=== PATIENT | female | born 1965 ===

== ENCOUNTER 2017-05-18 09:49 | Emergency (ER) | payer OTHER ==
[2017-05-18] MEDS ORDERED: Aspirin 325 mg EC Tablets PO STA (10:45)
[2017-05-18] MEDS ORDERED: Sodium Chloride 0.9% 1,000 ML IV ONE (10:45)
[2017-05-18] MEDS ORDERED: Sodium Chloride 0.9% 1,000 ML ONE (11:00)
--- NOTE | 2017-05-18 11:02 | RAD ---
PROCEDURE: CHEST RADIOGRAPH, 1 VIEW HISTORY: chest pain COMPARISON: None available. FINDINGS: LUNGS: Clear. PLEURA: No pneumothorax or pleural fluid seen. CARDIOVASCULAR: Normal. OSSEOUS STRUCTURES: No significant abnormalities. VISUALIZED UPPER ABDOMEN: Normal. OTHER FINDINGS: None. IMPRESSION: No active disease.
--- NOTE | 2017-05-18 11:29 | C.PDOC ---
History Of Present Illness <Ofelia Robison - Last Filed: 05/18/17 15:27> <Ashley Reddy - Last Filed: 05/18/17 16:53> 51 year old female, whose past medical history includes left-sided breast cancer , presents to the ED with her niece for evaluation of left breast pain that radiates down her left arm which began 1 week ago. Patient underwent partial mastectomy in 2007 and most recent chemotherapy session in August 2008 while in the [place]. Patient was referred by her doctor in [facility] to have a PET scan done, but she has not followed up yet. Patient denies fever, chills, chest pain, shortness of breath, nausea, vomiting, abdominal pain, extremity numbness/weakness, past medical history of HTN or other cardiac-related issues. (Ofelia Robison) History Per: Patient, Family (niece ) History/Exam Limitations: no limitations Onset/Duration Of Symptoms: Days (1 week ), Intermittent Episodes Current Symptoms Are (Timing): Still Present Additional History Per: Patient <Ofelia Robison - Last Filed: 05/18/17 15:27> <Ashley Reddy - Last Filed: 05/18/17 16:53> Time Seen by Provider: 05/18/17 10:33 Chief Complaint (Nursing): Breast Problem Past Medical History Reviewed: Historical Data, Nursing Documentation, Vital Signs - Medical History PMH: No Chronic Diseases Family History: States: Unknown Family Hx - Social History Hx Alcohol Use: No Hx Substance Use: No - Immunization History Hx Tetanus Toxoid Vaccination: No Hx Influenza Vaccination: No Hx Pneumococcal Vaccination: No <Ofelia Robison - Last Filed: 05/18/17 15:27> Vital Signs: Last Vital Signs Temp 97.5 F L 05/18/17 13:32 Pulse 94 H 05/18/17 13:32 Resp 20 05/18/17 13:32 BP 145/91 H 05/18/17 13:32 Pulse Ox 99 05/18/17 15:34 Review Of Systems Constitutional: Negative for: Fever, Chills Cardiovascular: Negative for: Chest Pain Respiratory: Negative for: Shortness of Breath Gastrointestinal: Negative for: Nausea, Vomiting, Abdominal Pain Musculoskeletal: Positive for: Arm Pain (left), Other (left breast pain ) Neurological: Negative for: Weakness, Numbness <Ofelia Robison - Last Filed: 05/18/17 15:27> Physical Exam - Physical Exam Appears: Non-toxic, No Acute Distress Skin: Normal Color, Warm, Dry Head: Atraumatic, Normacephalic Eye(s): bilateral: Normal Inspection, EOMI Nose: Normal Oral Mucosa: Moist Neck: Supple Chest: Symmetrical, No Deformity, Tenderness (at 2 oclock to left breast on palpation where healed incision is, no erythema, no increased warmth), No Other (right breast tenderness ) Cardiovascular: Rhythm Regular Respiratory: Normal Breath Sounds, No Rales, No Rhonchi, No Wheezing Gastrointestinal/Abdominal: Soft, No Tenderness, No Guarding, No Rebound Extremity: Normal ROM, Capillary Refill (less than 2 seconds ) Neurological/Psych: Oriented x3, Normal Speech, Normal Cognition Gait: Steady <Ofelia Robison - Last Filed: 05/18/17 15:27> ED Course And Treatment - Laboratory Results Result Diagrams: 05/18/17 11:30 05/18/17 11:30 ECG: Interpreted By Me, Viewed By Me ECG Rhythm: Sinus Rhythm Rate From EC O2 Sat by Pulse Oximetry: 99 (on RA) Pulse Ox Interpretation: Normal - Other Rad CXR X-Ray: Interpreted by Me, Viewed By Me, Read By Radiologist Interpretation: PROCEDURE: CHEST RADIOGRAPH, 1 VIEW. HISTORY: chest pain. COMPARISON: None available. FINDINGS: LUNGS: Clear. PLEURA: No pneumothorax or pleural fluid seen. CARDIOVASCULAR: Normal. OSSEOUS STRUCTURES: No significant abnormalities. VISUALIZED UPPER ABDOMEN: Normal. OTHER FINDINGS: None. IMPRESSION: No active disease. Progress Note: Bloodwork, urinalysis, CXR, EKG, left breast US ordered and reviewed. Aspirin PO and IV Fluids administered. On re-examination, patient is resting comfortably, showing no signs of distress. Neice and pt were informed that since pt has reproducible breast pain she will be discharged for strict follow up with clinic for mamogram. It wasdiscussed that pt has elevated BP. Patient was informed that their BP is elevated in the ED. They were advised to follow up with their physician or the [facility] for follow up and treatment. The risks of untreated hypertension were explained to patient. Instructed ER can not r/o malignancy and follow up in 1-2 days is neccassary. <fOelia Robison - Last Filed: 05/18/17 15:27> - Laboratory Results Result Diagrams: 05/18/17 11:30 05/18/17 11:30 <Ashley Reddy - Last Filed: 05/18/17 16:53> Disposition - Disposition Disposition Time: 13:33 <Ofelia Robison - Last Filed: 05/18/17 15:27> <Ashley Reddy - Last Filed: 05/18/17 16:53> - Disposition Referrals: [facility] [Outside] Disposition: HOME/ ROUTINE Condition: STABLE Additional Instructions: Vaya a fields mdico o la clnica en 2-5 grewal sin falta, para mas evaluacin. [place] los medicamentos dilip indicado. Volver a la earl de emergencia en cualquier momento si los sntomas persisten o empeoran. 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 - Scribe Statement The provider has reviewed the documentation as recorded by the Scribe (Tari Oliveira) <Ofelia Robison - Last Filed: 05/18/17 15:27> <Ashley Reddy - Last Filed: 05/18/17 16:53> - Scribe Statement All medical record entries made by the Scribe were at my direction and personally dictated by me. I have reviewed the chart and agree that the record accurately reflects my personal performance of the history, physical exam, medical decision making, and the department course for this patient. I have also personally directed, reviewed, and agree with the discharge instructions and disposition. (Ofelia Robison)
[2017-05-18 11:36] LABS: BASO % 0.8 % (0.0-2.0); EOS # 0.1 K/uL (0.0-0.7); EOS % 2.3 % (0.0-4.0); HEMATOCRIT 35.1 % (34.0-47.0); LYMPH # 1.4 K/uL (1.0-4.3); LYMPH % 22.7 % (20.0-40.0); MEAN CELL VOLUME 81.8 fL (81.0-99.0); MEAN CORPUSCULAR HEMOGLOBIN 27.4 pg (27.0-31.0); MEAN CORPUSCULAR HGB CONC 33.5 g/dL (33.0-37.0); MEAN PLATELET VOLUME 8.9 fL (7.2-11.7); MONO # 0.4 K/uL (0.0-0.8); MONO % 6.2 % (0.0-10.0); NRBC % 0.1 % (0.0-2.0); RED CELL DISTRIBUTION WIDTH 14.5 % (11.5-14.5); WHITE BLOOD COUNT 6.3 K/uL (4.8-10.8)
[2017-05-18 11:41] LABS: RBC URINE 2 /hpf (0-3); URINE BILIRUBIN NEGATIVE (NEGATIVE); URINE BLOOD NEGATIVE (NEGATIVE); URINE COLOR Yellow (YELLOW); URINE GLUCOSE (UA) NORMAL (Normal); URINE KETONE NEGATIVE (NEGATIVE); URINE LEUKOCYTE ESTERASE NEG Leu/uL (Negative); URINE PROTEIN NEGATIVE (NEGATIVE); URINE UROBILINOGEN NORMAL mg/dL (0.2-1.0); WBC URINE < 1 /hpf (0-5)
[2017-05-18 11:49] LABS: CHLORIDE 100 mmol/L (98-107); SODIUM 136 mmol/L (132-148)
[2017-05-18 11:51] LABS: GFR AFRICAN-AMERICAN > 60
[2017-05-18 11:52] LABS: ALB/GLOB RATIO 1.1 (1.0-2.1); ALKALINE PHOSPHATASE 68 U/L (38-126); ALT/SGPT 30 U/L (9-52); AST/SGOT 37 U/L (14-36); BILIRUBIN,TOTAL 0.7 mg/dL (0.2-1.3); BLOOD UREA NITROGEN 13 mg/dL (7-17); CARBON DIOXIDE 23 mmol/L (22-30); GLUCOSE,RANDOM 81 mg/dL (65-105); TOTAL PROTEIN 8.1 g/dL (6.3-8.3)
[2017-05-18 12:08] LABS: POTASSIUM 4.5 mmol/L (3.6-5.2)
[2017-05-18 13:34] VITALS: BP 145/91; PULSE 94; RESP 20; TEMP 97.5
[2017-05-18 13:36] VITALS: O2SAT 99
--- NOTE | 2017-05-18 23:11 | CARD ---
APPROVED REPORT EKG Measurement Heart [id number] <Conclusion> Normal sinus rhythm Minimal voltage criteria for LVH, may be normal variant Borderline ECG
== END 2017-05-18 13:57 | disposition home or self-care (01) ==
LOC: C.ER 09:49
DX: N64.4 Mastodynia (principal); Z85.3 Personal history of malignant neoplasm of breast